=== PATIENT | female | born 1945 | race African-American/Black ===

== ENCOUNTER 2022-09-11 15:27 | Inpatient (IN) | payer MEDICARE ==
[~2022-09-11] VITALS: Ht 152.4 cm; Wt 67.6 kg
[2022-09-11] MEDS ORDERED: ONDANSETRON HCL 4MG/2ML INJ IV STA (16:58)
[2022-09-11] MEDS ORDERED: MECLIZINE 25MG TABLET PO ONE (17:00)
[2022-09-11] MEDS ORDERED: SODIUM CHLORIDE 0.9% 1,000 ML IV ONE (17:00)
[2022-09-11] MEDS ORDERED: CLONIDINE 0.2MG TABLET PO ONE (17:00)
[2022-09-11 17:19] LABS: BASOPHILS % 0.7 % (0.0-2.0); EOSINOPHILS % 1.1 % (0.0-5.0); HEMOGLOBIN. 12.3 g/dL (12.0-16.0); LYMPHOCYTES % 22.4 % (20.0-50.0); MEAN CORPUSCULAR VOLUME 75.7 fL (81.0-99.0); MEAN PLATELET VOLUME 10.7 fl (7.4-10.4); MONOCYTES % 7.5 % (2.0-8.0); NEUTROPHILS % 68.3 % (40.0-76.0); PLATELET 182 x1000/uL (130-400); RED BLOOD CELL COUNT 5.15 mill/uL (4.2-5.4); RED CELL DISTRIBUTION WIDTH 16.1 % (11.6-14.6)
[2022-09-11 17:47] LABS: CHLORIDE 104 mEq/L (98-107)
[2022-09-11 19:04] LABS: CLARITY URINE CLEAR (CLEAR); COLOR URINE YELLOW (YELLOW); KETONES URINE NEGATIVE (NEGATIVE); LEUKOCYTE ESTERASE URINE NEGATIVE (NEGATIVE); NITRITE URINE NEGATIVE (NEGATIVE); OCCULT BLOOD URINE NEGATIVE (NEGATIVE); PH URINE 8.5 (4.5-8.0); PROTEIN URINE NEGATIVE (NEGATIVE); SPECIFIC GRAVITY URINE 1.008 (1.005-1.030); UROBILINOGEN URINE 0.2 E.U./dL (0.2-1.0)
[2022-09-11] MEDS ORDERED: CLONIDINE 0.1MG TABLET PO ONE (19:45)
[2022-09-11] MEDS ORDERED: ASPIRIN 325MG EC TABLET PO ONE (19:45)
[2022-09-12 04:00] VITALS: BP 131/60
[2022-09-12] MEDS ORDERED: CLONIDINE 0.1MG TABLET PO PRN (05:45)
[2022-09-12 07:09] VITALS: BP 131/60
[2022-09-12 08:00] VITALS: BP 137/69
[2022-09-12] MEDS: LISINOPRIL 20MG TABLET PO SCH (08:39)
[2022-09-12] MEDS: NIFEDIPINE XL 60MG TAB PO SCH (08:39)
[2022-09-12] MEDS: ASPIRIN 81MG TABLET PO SCH (08:39)
[2022-09-12 12:00] VITALS: BP 110/54
[2022-09-12] MEDS ORDERED: BRIM10DR2 RIGHTEYE (15:39)
[2022-09-12] MEDS ORDERED: NETA2.5D EACHEYE (15:39)
[2022-09-12] MEDS ORDERED: BRIM10DR2 EACHEYE (15:39)
[2022-09-12] MEDS ORDERED: LOVA20TA2 PO (15:39)
[2022-09-12] MEDS ORDERED: PRED5DRO22 BOTHEYE (15:39)
[2022-09-12] MEDS ORDERED: DORZ10DR9 EACHEYE (15:39)
[2022-09-12] MEDS ORDERED: BENA40TA91 PO (15:39)
[2022-09-12 16:00] VITALS: BP 125/61
[2022-09-12] MEDS: PREDNISOLONE ACETATE 1% OPHTH DROPS 5ML BOTHEYE SCH (18:07)
[2022-09-12] MEDS: NETARSUDIL 0.02% OP SCH (18:12)
[2022-09-12 20:00] VITALS: BP 127/65
[2022-09-12] MEDS ORDERED: ATORVASTATIN CALCIUM 20MG TABLET PO SCH (21:00)
[2022-09-12] MEDS: DORZOLAM/TIMOLOL 2.23/0.68% OPHTH DROPS 10ML BOTHEYE SCH (21:33)
[2022-09-12] MEDS ORDERED: MECLIZINE 25MG TABLET PO PRN (21:45)
[2022-09-12] MEDS: BRIMONIDINE 0.2% OPHTH DROPS 5ML BOTHEYE SCH (22:09)
[2022-09-13] VITALS: BP 122/66
[2022-09-13] MEDS: PREDNISOLONE ACETATE 1% OPHTH DROPS 5ML BOTHEYE SCH ×3 (00:39→12:31)
[2022-09-13 04:00] VITALS: BP 126/67
[2022-09-13] MEDS: BRIMONIDINE 0.2% OPHTH DROPS 5ML BOTHEYE SCH ×2 (06:51→14:31)
[2022-09-13 08:00] VITALS: BP 113/55
[2022-09-13] MEDS: NIFEDIPINE XL 60MG TAB PO SCH (09:00)
[2022-09-13] MEDS: LISINOPRIL 20MG TABLET PO SCH (09:00)
[2022-09-13] MEDS: ASPIRIN 81MG TABLET PO SCH (09:05)
[2022-09-13] MEDS: DORZOLAM/TIMOLOL 2.23/0.68% OPHTH DROPS 10ML BOTHEYE SCH (09:05)
[2022-09-13 12:00] VITALS: BP 135/68
[2022-09-13] MEDS ORDERED: NIFE-33 MT (13:13)
[2022-09-13] MEDS ORDERED: BENA40TA91 PO (13:13)
[2022-09-13] MEDS: NETARSUDIL 0.02% OP SCH (17:01)
[2022-09-13 17:11] VITALS: BP 145/68
== END 2022-09-13 17:45 | disposition home or self-care (01) | DRG 74 ==
LOC: ER 15:47 → MICUSO 21:34 → EDBEDREQTM 21:37 → EDBEDREQ 21:37 → 7WST 09-12 04:10
PROVIDERS: ADMIT Internal Medicine; ATTEND Internal Medicine
DX: G90.8 Other disorders of autonomic nervous system (principal); E87.1 Hypo-osmolality and hyponatremia; I16.0 Hypertensive urgency; Z91.14 Patient's other noncompliance with medication regimen; T46.5X6A Underdosing of other antihypertensive drugs, initial encounter
CPT/HCPCS: 36415; 70551; 71045; 80053; 81003; 83880; 84484; 85025; 93005; 97165; 97535; 99285; J2405; J7030; J8597